=== PATIENT | male | born 1960 | race Hispanic/Latino ===

== ENCOUNTER 2018-03-21 11:02 | Emergency (ER) | payer MEDICARE, OTHER ==
[~2018-03-21 11:02] MED LIST: ALPR1TAB7 PO; ATOR20TA65 PO; CLON1TAB12 PO; INSU3INS3 SQ; INSU3INS5 SQ; LISI1TAB13 PO; METF-444 PO; OMEP20CA10 PO
[2018-03-21] MEDS ORDERED: ACETAMINOPHEN EXTRA STRENGTH 500 MG TABLET ONE (11:33)
[2018-03-21 11:49] LABS: APPEARANCE,URINE Turbid (CLEAR); BILIRUBIN,URINE Negative (NEGATIVE); COLOR,URINE Yellow (YELLOW); GLUCOSE, URINE (UA) >=1000 mg/dL (NEGATIVE); KETONES,URINE Negative (NEGATIVE); LEUKOCYTE ESTERASE ,URINE Negative (NEGATIVE); NITRATE,URINE Negative (NEGATIVE); OCCULT BLOOD,URINE Negative (NEGATIVE); PH,URINE 6.5 (5.0-8.0); PROTEIN,URINE Negative (NEGATIVE); UROBILINOGEN,URINE 0.2 mg/dL (0.2-1.0)
[2018-03-21 11:57] LABS: BACTERIA,URINE None Seen /HPF (None Seen); RBC,URINE 0-1 /HPF (0-1); SQUAMOUS EPITHELIAL CELL,UR 0-2 /HPF (0-2); WBC,URINE 0-1 /HPF (0-1)
[2018-03-21] MEDS ORDERED: SODIUM CHLORIDE 0.9% 1000ML 1,000 ML IV ONE (11:58)
[2018-03-21 12:02] LABS: BASOPHILS % (AUTO) 0.6 % (0.0-5.0); EOSINOPHILS % (AUTO) 2.9 % (0.0-8.0); HEMATOCRIT 49.5 % (42-54); LYMPHOCYTES % (AUTO) 17.2 % (21.0-51.0); MEAN CORPUSCULAR HEMOGLOBIN 31.4 pg (27.0-33.0); MEAN CORPUSCULAR VOLUME 89.6 fL (79-99); NEUTROPHILS % (AUTO) 71.3 % (40.0-77.0); PLATELET COUNT (AUTO) 240 K/uL (130-400); RED BLOOD CELL COUNT(AUTO) 5.53 MIL/uL (4.50-6.20); WHITE BLOOD COUNT (AUTO) 6.1 K/uL (4.8-10.8)
[2018-03-21 12:11] LABS: ACETONE,BLOOD NEGATIVE (NEGATIVE)
[2018-03-21 12:25] LABS: CARBON DIOXIDE 25 mmol/L (21-32); CHLORIDE 99 mmol/L (101-111); GLOMERULAR FILTR. RATE CALC 81 mL/min (>60); GLUCOSE,RANDOM 355 mg/dL (70-105); POTASSIUM 4.2 mmol/L (3.5-5.1); SODIUM SERUM 135 mmol/L (136-145); UREA NITROGEN, BLOOD 17 mg/dL (7-18)
[2018-03-21] MEDS ORDERED: INSULIN HUMULIN R 100 UNIT/ML 3ML ONE (12:27)
[2018-03-21 12:30] LABS: ALANINE AMINOTRANSFERASE 21 U/L (12-78); ALBUMIN 4.1 g/dL (3.5-5.0); ASPARTATE AMINOTRANSFERASE 18 U/L (10-37); BILIRUBIN,TOTAL 0.4 mg/dL (0.2-1.0); TOTAL PROTEIN, SERUM 7.9 g/dL (6.0-8.3)
== END 2018-03-21 13:01 | disposition home or self-care (01) ==
LOC: EDH 11:02
DX: E13.65 Other specified diabetes mellitus with hyperglycemia (principal); N48.1 Balanitis; R30.0 Dysuria; Z72.0 Tobacco use; Z90.49 Acquired absence of other specified parts of digestive tract
CPT/HCPCS: 36415; 80053; 81001; 82009; 82948 ×2; 83605; 85025; 87040; 87088; 87486; 87797; 87804 ×2; 96361; 96374; 99283; J1815; J7030

== ENCOUNTER 2018-09-07 16:58 | Emergency (ER) | payer OTHER ==
[~2018-09-07 16:58] MED LIST changes: +OMEP-50 PO; -OMEP20CA10 PO
[2018-09-07] MEDS ORDERED: TETANUS/DIPHTHERIA TOXOID [ADULT] 0.5 ML VIAL IM ONE (17:16)
[2018-09-07] MEDS ORDERED: LIDOCAINE HCL 1% 20 ML VIAL ONE (17:31)
== END 2018-09-07 18:48 | disposition home or self-care (01) ==
LOC: EDH 16:58
DX: S61.411A Laceration without foreign body of right hand, initial encounter (principal); E11.9 Type 2 diabetes mellitus without complications; Z90.49 Acquired absence of other specified parts of digestive tract; X58.XXXA Exposure to other specified factors, initial encounter; Y93.89 Activity, other specified; Y92.098 Other place in other non-institutional residence as the place of occurrence of the external cause; Y99.8 Other external cause status
CPT/HCPCS: 12041; 73130; 90471; 90714

== ENCOUNTER 2019-08-28 08:10 | Emergency (ER) | payer OTHER ==
[2019-08-28] MEDS ORDERED: NA BORATE/BORIC AC/H2O/NACL 120 ML OPHTH IRRIG SOLN ONE (08:27)
[2019-08-28] MEDS ORDERED: TETRACAINE HCL 0.5% 4 ML OPHTH SOLN ONE (08:27)
[2019-08-28] MEDS ORDERED: FLUORESCEIN SODIUM 1 STRIP STRIP ONE (08:28)
== END 2019-08-28 10:09 | disposition home or self-care (01) ==
LOC: EDH 08:10
DX: S05.01XA Injury of conjunctiva and corneal abrasion without foreign body, right eye, initial encounter (principal); E11.9 Type 2 diabetes mellitus without complications; Z72.0 Tobacco use; X58.XXXA Exposure to other specified factors, initial encounter; Y93.H2 Activity, gardening and landscaping; Y92.096 Garden or yard of other non-institutional residence as the place of occurrence of the external cause; Y99.8 Other external cause status